=== PATIENT | male | born 1995 | race Caucasian/White ===

== ENCOUNTER 2020-02-26 16:06 | Emergency (ER) | payer SELFPAY ==
[2020-02-26 16:16] VITALS: BP 117/96; PULSE 100; RESP 25; TEMP 36.9; O2SAT 93; BMI 25.0
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
[2020-02-26 16:51] VITALS: O2SAT 93
[2020-02-26] MEDS: clindamycin 150 mg Capsule 600 MG PO (19:11)
[2020-02-26] MEDS: ibuprofen 600 mg Tablet PO (19:13)
[2020-02-26 19:17] VITALS: RESP 18
--- NOTE | 2020-03-01 09:54 | DCPLANNER ---
Addendum entered by Vera Mckeon 03/09/20 15:31: Manjula from Dr. Rodriguez office called case management associate and was told that patient declined follow up appointment due to financial reasons. Original Note: adult education manager had message to schedule a follow up appointment for patient with Dr. Barnes. adult education manager faxed patients information to the clinic of Dr. Barnes. adult education manager called to confirm that the office of Dr. Barnes received patients information, case management associate was told that patient did receive information.
== END 2020-02-26 19:17 | disposition home or self-care (01) ==
PROVIDERS: Emergency Provider Nurse Practitioner Family
DX: S02.85XB Fracture of orbit, unspecified, initial encounter for open fracture (principal); Y04.2XXA Assault by strike against or bumped into by another person, initial encounter; F17.210 Nicotine dependence, cigarettes, uncomplicated
CPT/HCPCS: 12013; 12345; 70450; 70486; 72125; 73010; 99281; 99283; J2001

== ENCOUNTER → 2021-06-18 11:37 | Outpatient (BNVA) | payer OTHER, SELFPAY | PROVIDERS: Visit Provider Nurse Practitioner Family | DX: Z20.822 Contact with and (suspected) exposure to COVID-19 (principal); J06.9 Acute upper respiratory infection, unspecified | CPT/HCPCS: 87635 ==